=== PATIENT | male | born 1960 | race Caucasian/White ===

== ENCOUNTER 2019-10-26 09:35 | Outpatient (CLI) | payer OTHER ==
[2019-10-26] MEDS ORDERED: DIPH50CA PO (10:09)
[2019-10-26] MEDS ORDERED: FENO160T PO (10:09)
[2019-10-26] MEDS ORDERED: CLON1TAB11 PO (10:09)
[2019-10-26] MEDS ORDERED: CHOL10003 PO (10:09)
[2019-10-26] MEDS ORDERED: MELO15TA24 PO (10:09)
[2019-10-26] MEDS ORDERED: AMIT25TA PO (10:09)
[2019-10-26] MEDS ORDERED: ATOR40TA78 PO (10:09)
[2019-10-26 10:30] LABS: BASOPHILS # (AUTO) 0.05 x10^3/uL (0-0.1); BASOPHILS % (AUTO) 1 % (0-1); EOSINOPHILS % (AUTO) 4 % (1-7); LYMPHOCYTES # (AUTO) 2.52 x10^3/uL (1-3.4); LYMPHOCYTES % (AUTO) 26 % (22-44); MD NO; MEAN CORPUSCULAR HEMOGLOBIN 29.2 pg (27.5-34.5); MEAN CORPUSCULAR HGB CONC 32.4 g/dL (33.2-36.2); MEAN PLATELET VOLUME 7.2 fL (7.4-10.4); MONOCYTES # (AUTO) 0.75 x10^3/uL (0.2-0.8); MONOCYTES % (AUTO) 8 % (2-9); NEUTROPHILS # (AUTO) 5.89 x10^3/uL (1.8-6.8); NEUTROPHILS % (AUTO) 61 % (42-75); PLATELET COUNT 318 x10^3/uL (130-400); RED CELL DISTRIBUTION WIDTH 13.1 % (9.4-14.8)
[2019-10-26 10:40] LABS: ANION GAP 4 mmol/L (5-15); CALCIUM 9.3 mg/dL (8.5-10.1); CHLORIDE 109 mmol/L (98-107); CREATININE 1.28 mg/dL (0.7-1.3)
[2019-10-26 10:42] LABS: INTERNATIONAL NORMALIZED RATIO 0.97 (0.93-1.1); PROTHROMBIN TIME 10.3 Seconds (9.6-11.5)
== END 2019-10-26 23:59 | disposition home or self-care (01) ==
LOC: STAR 09:35
PROVIDERS: ATTEND Neurological Surgery
DX: Z01.818 Encounter for other preprocedural examination (principal); M51.26 Other intervertebral disc displacement, lumbar region
CPT/HCPCS: 36415; 71046; 80048; 85025; 85610; 85730; 93005

== ENCOUNTER → 2019-10-31 | Day surgery (SDC) | payer OTHER ==
[~2019-10-31] VITALS: Ht 188 cm; Wt 94.7 kg
[~2019-10-31] MED LIST: ACETAMINOPHEN 325 MG TABLET PO PRN; ALBUTEROL SULFATE 2.5 MG/3 ML NPPB PRN; AMIT25TA PO; ATOR40TA78 PO; BACITRACIN 50,000 UNIT ONE; BACITRACIN OINT 500U/GM, 15 GM ONE; BUPIVACAINE/PF-EPI 0.5% 1:200K ONE; CEFAZOLIN 1,000 MG ONE; CHLORHEXIDINE 15 ML UDC MM STA; CHLORHEXIDINE 15 ML UDC ONE; CHOL10003 PO; CLON1TAB11 PO; DEXAMETHASONE 4 MG/ML, 1ML ONE; DIPH50CA PO; EPHEDRINE 50 MG/ML, 1ML ONE; FENO160T PO; FENTANYL PF 100 MCG/2ML ONE; FENTANYL PF 250 MCG/5ML ONE; GLYCOPYRROLATE 0.2MG/1ML, 5ML ONE; HYDROmorphone 1 MG/ML, 1ML INJ IVPush PRN; KETOROLAC 30 MG/1 ML ONE; LABETALOL 5MG/ML, 20ML IV PRN; LACTATED RINGERS 1,000 ML IV SCH; LACTATED RINGERS 1,000 ML IV STA; LIDOCAINE PF 2%, 5ML ONE; LORazepam 2 MG/ML, 1ML IVPush PRN; MELO15TA24 PO; MEPERIDINE/PF 25MG/ML,1ML ONE; METHOCARBAMOL 1,000 MG in DEXTROSE 5% 100 ML IV PRN; MIDAZOLAM 1 MG/ML, 2ML ONE; NEOSTIGMINE 1 MG/ML, 10ML ONE; ONDANSETRON 2MG/ML, 2ML ONE; OXYcodone 5 MG/5 ML ORAL.SOL UDC ONE; OXYcodone 5 MG/5 ML ORAL.SOL UDC PO PRN; OXYcodone IR 5MG TABLET PO PRN; PROMETHAZINE 25 MG/ML, 1ML IVPush PRN; PROPOFOL 10 MG/ML, 20ML ONE; PROPOFOL 10 MG/ML, 50ML ONE; ROCURONIUM 10MG/ML,5ML ONE; SUCCINYLCHOLINE 20 MG/ML, 10ML ONE; THROMBIN 20,000 UNIT VIAL TP ONE; hydrALAzine 20 MG/ML, 1ML IV PRN
[2019-10-31 09:09] VITALS: BP 144/94
[2019-10-31] MEDS: FENTANYL PF 100 MCG/2ML IV PRN ×2 (12:00→12:05)
[2019-10-31] MEDS: MEPERIDINE/PF 25MG/0.5ML IVPush PRN ×2 (12:15→12:30)
== END | disposition home or self-care (01) ==
LOC: ORIP 08:31 → UNDOADMIN 08:31 → SDC 09:11 → EDSTATUS 12:00 → UNDODISIN 16:47
PROVIDERS: ATTEND Neurological Surgery
DX: M51.26 Other intervertebral disc displacement, lumbar region (principal); Z20.828 Contact with and (suspected) exposure to other viral communicable diseases; M48.061 Spinal stenosis, lumbar region without neurogenic claudication; M48.07 Spinal stenosis, lumbosacral region; E78.5 Hyperlipidemia, unspecified; M19.90 Unspecified osteoarthritis, unspecified site; Z79.1 Long term (current) use of non-steroidal anti-inflammatories (NSAID); Z79.899 Other long term (current) drug therapy; Z87.891 Personal history of nicotine dependence; Z90.49 Acquired absence of other specified parts of digestive tract; Z98.890 Other specified postprocedural states; Z82.49 Family history of ischemic heart disease and other diseases of the circulatory system
CPT/HCPCS: 36415; 63030; 63047; 72100; 86850; 86900; 87635; 95938; 95941; C1781; J0330; J0690; J1100; J1885; J2175; J2250; J2405; J2704; J2710; J2800; J3010; J7120

== ENCOUNTER 2019-11-01 14:29 | Inpatient (IN) | payer OTHER ==
[~2019-11-01] VITALS: Ht 188 cm; Wt 103.9 kg
[~2019-11-01 14:29] MED LIST changes: -ACETAMINOPHEN 325 MG TABLET PO PRN; -ALBUTEROL SULFATE 2.5 MG/3 ML NPPB PRN; -BACITRACIN 50,000 UNIT ONE; -BACITRACIN OINT 500U/GM, 15 GM ONE; -BUPIVACAINE/PF-EPI 0.5% 1:200K ONE; -CEFAZOLIN 1,000 MG ONE; -CHLORHEXIDINE 15 ML UDC MM STA; -CHLORHEXIDINE 15 ML UDC ONE; -DEXAMETHASONE 4 MG/ML, 1ML ONE; -EPHEDRINE 50 MG/ML, 1ML ONE; -FENTANYL PF 100 MCG/2ML ONE; -FENTANYL PF 250 MCG/5ML ONE; -GLYCOPYRROLATE 0.2MG/1ML, 5ML ONE; -HYDROmorphone 1 MG/ML, 1ML INJ IVPush PRN; -KETOROLAC 30 MG/1 ML ONE; -LABETALOL 5MG/ML, 20ML IV PRN; -LACTATED RINGERS 1,000 ML IV SCH; -LACTATED RINGERS 1,000 ML IV STA; -LIDOCAINE PF 2%, 5ML ONE; -LORazepam 2 MG/ML, 1ML IVPush PRN; -MEPERIDINE/PF 25MG/ML,1ML ONE; -METHOCARBAMOL 1,000 MG in DEXTROSE 5% 100 ML IV PRN; -MIDAZOLAM 1 MG/ML, 2ML ONE; -NEOSTIGMINE 1 MG/ML, 10ML ONE; -ONDANSETRON 2MG/ML, 2ML ONE; -OXYcodone 5 MG/5 ML ORAL.SOL UDC ONE; -OXYcodone 5 MG/5 ML ORAL.SOL UDC PO PRN; -OXYcodone IR 5MG TABLET PO PRN; -PROMETHAZINE 25 MG/ML, 1ML IVPush PRN; -PROPOFOL 10 MG/ML, 20ML ONE; -PROPOFOL 10 MG/ML, 50ML ONE; -ROCURONIUM 10MG/ML,5ML ONE; -SUCCINYLCHOLINE 20 MG/ML, 10ML ONE; -THROMBIN 20,000 UNIT VIAL TP ONE; -hydrALAzine 20 MG/ML, 1ML IV PRN
--- NOTE | 2019-11-01 15:02 | NUR ---
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
--- NOTE | 2019-11-01 15:25 | NUR ---
BREAK RN: EFRA DIRECTOR OF PERIOPERATIVE SERVICES AT BEDSIDE TO NANCY PT. CONTACT WITH PT. 59 YR OLD MALE HERE WITH C/O "YESTERDAY I CHECKED IN AT 0830 AND HAD A LAMINECTOMY DISCECTOMY BY DR BONE, WE JUST CAME FROM HIS OFFICE. RIGHT FOOT IS NUMB AND "I CANT PICK IT UP"
[2019-11-01] MEDS ORDERED: ONDANSETRON 2MG/ML, 2ML IVPush ONE ×2 (15:30→16:30)
[2019-11-01] MEDS ORDERED: SODIUM CHLORIDE FLUSH 10ML SYR IVF ONE (15:30)
--- NOTE | 2019-11-01 15:53 | NUR ---
RECEIVED CALL FROM KANDI NEWTON, REQUEST PT ALSO HAVE PT/INR AND PTT DRAWN. ORDER PLACED. PT TO GO TO SURGERY AT 8PM TONIGHT. WOULD LIKE ED MD TO PHONE HER WITH MRI RESULTS.
--- NOTE | 2019-11-01 16:00 | NUR ---
REPORT TO YOL[facility]
[2019-11-01] MEDS ORDERED: MORPHINE SULFATE 4 MG/ML, 1ML ONE (16:24)
[2019-11-01] MEDS ORDERED: ONDANSETRON 2MG/ML, 2ML ONE ×2 (16:24→20:50)
[2019-11-01] MEDS ORDERED: MORPHINE SULFATE 4 MG/ML, 1ML IVPush PRN (16:30)
[2019-11-01] MEDS ORDERED: DIAZEPAM 5 MG/ML, 2ML IV ONE (16:30)
--- NOTE | 2019-11-01 16:32 | NUR ---
C/O LBP. Medicated per eMAR. No other needs.
[2019-11-01 17:18] LABS: BASOPHILS # (AUTO) 0.07 x10^3/uL (0-0.1); BASOPHILS % (AUTO) 1 % (0-1); EOSINOPHILS # (AUTO) 0.19 x10^3/uL (0-0.4); EOSINOPHILS % (AUTO) 2 % (1-7); LYMPHOCYTES % (AUTO) 20 % (22-44); MD NO; MEAN CORPUSCULAR HEMOGLOBIN 29.9 pg (27.5-34.5); MEAN CORPUSCULAR HGB CONC 33.5 g/dL (33.2-36.2); MEAN CORPUSCULAR VOLUME 89.2 fL (81-97); MEAN PLATELET VOLUME 8.1 fL (7.4-10.4); MONOCYTES # (AUTO) 1.34 x10^3/uL (0.2-0.8); MONOCYTES % (AUTO) 10 % (2-9); NEUTROPHILS # (AUTO) 8.78 x10^3/uL (1.8-6.8); NEUTROPHILS % (AUTO) 68 % (42-75); PLATELET COUNT 274 x10^3/uL (130-400); RED BLOOD COUNT 4.82 x10^6/uL (4.38-5.82); RED CELL DISTRIBUTION WIDTH 13.5 % (9.4-14.8)
--- NOTE | 2019-11-01 17:25 | NUR ---
Patient to MRI.
[2019-11-01 17:29] LABS: ALBUMIN 4.1 g/dL (3.4-5.0); ANION GAP 4 mmol/L (5-15); CALCIUM 8.8 mg/dL (8.5-10.1); CHLORIDE 105 mmol/L (98-107)
[2019-11-01 17:33] LABS: INTERNATIONAL NORMALIZED RATIO 0.94 (0.93-1.1)
[2019-11-01] MEDS ORDERED: GADOTERATE 10 MMOL/20 ML SYR ONE (17:56)
--- NOTE | 2019-11-01 18:29 | NUR ---
SBA to the restroom.
[2019-11-01] MEDS ORDERED: FENTANYL PF 100 MCG/2ML ONE ×2 (18:43→21:41)
[2019-11-01] MEDS ORDERED: MIDAZOLAM 1 MG/ML, 2ML ONE (18:44)
[2019-11-01] MEDS ORDERED: FAMOTIDINE 20 MG/2 ML ONE (18:49)
[2019-11-01] MEDS ORDERED: DEXAMETHASONE 4 MG/ML, 1ML ONE ×2 (18:49→20:50)
[2019-11-01] MEDS ORDERED: GABAPENTIN 300 MG CAPSULE ONE (18:49)
[2019-11-01] MEDS ORDERED: LACTATED RINGERS 1,000 ML IV ONE (19:00)
[2019-11-01] MEDS ORDERED: GABAPENTIN 300 MG CAPSULE PO ONE (19:00)
[2019-11-01] MEDS ORDERED: FAMOTIDINE 20 MG/2 ML IVPush ONE (19:00)
[2019-11-01] MEDS ORDERED: DEXAMETHASONE 4 MG/ML, 1ML IVPush ONE (19:00)
--- NOTE | 2019-11-01 19:23 | NUR ---
Patient to OR
[2019-11-01] MEDS ORDERED: LACTATED RINGERS 1,000 ML IV SCH (19:30)
[2019-11-01] MEDS ORDERED: BACITRACIN 50,000 UNIT ONE (19:36)
[2019-11-01] MEDS ORDERED: THROMBIN 20,000 UNIT VIAL TP ONE (19:36)
[2019-11-01] MEDS ORDERED: BUPIVACAINE/PF-EPI 0.5% 1:200K ONE (19:36)
[2019-11-01] MEDS ORDERED: BACITRACIN OINT 500U/GM, 15 GM ONE (19:36)
[2019-11-01] MEDS ORDERED: PHENYLEPHRINE 10 MG/ML ONE (19:58)
[2019-11-01] MEDS ORDERED: EPHEDRINE 50 MG/ML, 1ML ONE (19:58)
[2019-11-01] MEDS ORDERED: PROPOFOL 10 MG/ML, 20ML ONE (20:50)
[2019-11-01] MEDS ORDERED: CEFAZOLIN 1,000 MG ONE (20:50)
[2019-11-01] MEDS ORDERED: KETOROLAC 30 MG/1 ML IVPush PRN (21:00)
[2019-11-01] MEDS ORDERED: HYDROcodone/APAP 7.5-325MG/15ML UDC PO PRN (21:00)
[2019-11-01] MEDS ORDERED: PROMETHAZINE 25 MG/ML, 1ML IVPush PRN (21:00)
[2019-11-01] MEDS ORDERED: MEPERIDINE/PF 25MG/0.5ML IVPush PRN (21:00)
[2019-11-01] MEDS ORDERED: HYDROcodone/APAP 7.5-325MG/15ML UDC ONE (21:41)
[2019-11-01] MEDS ORDERED: HYDROmorphone 1 MG/ML, 1ML INJ ONE ×2 (21:41→22:12)
[2019-11-01] MEDS: FENTANYL PF 100 MCG/2ML IV PRN ×2 (21:44→21:49)
[2019-11-01] MEDS: HYDROmorphone 1 MG/ML, 1ML INJ IVPush PRN ×4 (21:54→22:21)
[2019-11-01] MEDS ORDERED: METHOCARBAMOL 750 MG TABLET ONE (22:12)
[2019-11-01] MEDS ORDERED: HYDROmorphone PCA 30 MG/30 ML IV PRN ×2 (22:30→23:45)
[2019-11-01] MEDS ORDERED: METHOCARBAMOL 750 MG TABLET PO ONE (22:30)
[2019-11-01] MEDS ORDERED: BISACODYL 10 MG SUPP PR PRN (23:45)
[2019-11-01] MEDS ORDERED: DIPHENHYDRAMINE 50 MG CAPSULE PO PRN (23:45)
[2019-11-01] MEDS ORDERED: DIPHENHYDRAMINE 50 MG/ML, 1ML IVPush PRN (23:45)
[2019-11-01] MEDS ORDERED: NS + 20MEQ KCL 1,000 ML IV SCH (23:45)
[2019-11-01] MEDS ORDERED: MAGNESIUM HYDROXIDE 8%, 30ML UDC PO PRN (23:45)
[2019-11-01] MEDS ORDERED: PROMETHAZINE 25 MG/ML, 1ML IM PRN (23:45)
[2019-11-01] MEDS ORDERED: ONDANSETRON 2MG/ML, 2ML IV PRN (23:45)
[2019-11-01] MEDS ORDERED: MORPHINE MC SCH (23:45)
[2019-11-01] MEDS ORDERED: LABETALOL 5MG/ML, 20ML IV PRN (23:45)
[2019-11-02] MEDS ORDERED: LACTATED RINGERS 1,000 ML IV SCH
[2019-11-02] MEDS ORDERED: TRAZODONE 50MG TABLET PO PRN
[2019-11-02] MEDS ORDERED: ACETAMINOPHEN 325 MG TABLET PO PRN
[2019-11-02] MEDS ORDERED: hydrALAzine 20 MG/ML, 1ML IVPush PRN
[2019-11-02] MEDS ORDERED: ONDANSETRON 2MG/ML, 2ML IVPush PRN
[2019-11-02 00:14] VITALS: BP 152/71
[2019-11-02] MEDS ORDERED: ATORVASTATIN 40 MG TABLET PO SCH (00:30)
[2019-11-02] MEDS: FAMOTIDINE 20 MG/2 ML IVPush SCH ×2 (00:35→12:47)
[2019-11-02] MEDS: AMITRIPTYLINE 25 MG TABLET PO SCH ×2 (00:40→21:08)
[2019-11-02] MEDS: ATORVASTATIN 40 MG TABLET PO SCH ×2 (00:41→21:08)
[2019-11-02 02:25] LABS: MICROSCOPIC AUTO
[2019-11-02] MEDS: DEXAMETHASONE 4 MG/ML, 1ML IV SCH ×4 (02:59→21:08)
[2019-11-02] MEDS: CEFAZOLIN PMX 2GM/50ML 50 ML IVPB SCH ×2 (03:51→12:48)
[2019-11-02 03:53] VITALS: BP 95/59
[2019-11-02] MEDS ORDERED: morphine SULFATE 10 MG/ML, 1ML IVPush PRN (06:30)
[2019-11-02] MEDS ORDERED: METHOCARBAMOL 1,000 MG in DEXTROSE 5% 100 ML IV ONE ×2 (06:30)
[2019-11-02 06:33] LABS: BASOPHILS # (AUTO) 0.01 x10^3/uL (0-0.1); BASOPHILS % (AUTO) 0 % (0-1); EOSINOPHILS % (AUTO) 0 % (1-7); LYMPHOCYTES # (AUTO) 0.58 x10^3/uL (1-3.4); LYMPHOCYTES % (AUTO) 4 % (22-44); MD NO; MEAN CORPUSCULAR HEMOGLOBIN 29.3 pg (27.5-34.5); MEAN CORPUSCULAR HGB CONC 32.2 g/dL (33.2-36.2); MEAN CORPUSCULAR VOLUME 91.1 fL (81-97); MEAN PLATELET VOLUME 8.3 fL (7.4-10.4); MONOCYTES # (AUTO) 0.46 x10^3/uL (0.2-0.8); MONOCYTES % (AUTO) 3 % (2-9); NEUTROPHILS # (AUTO) 13.33 x10^3/uL (1.8-6.8); NEUTROPHILS % (AUTO) 93 % (42-75); PLATELET COUNT 240 x10^3/uL (130-400); RED BLOOD COUNT 4.74 x10^6/uL (4.38-5.82); RED CELL DISTRIBUTION WIDTH 13.9 % (9.4-14.8)
[2019-11-02 07:31] VITALS: BP 110/65
[2019-11-02 07:42] LABS: ANION GAP 6 mmol/L (5-15); CALCIUM 8.4 mg/dL (8.5-10.1); CHLORIDE 105 mmol/L (98-107); CREATININE 1.45 mg/dL (0.7-1.3)
[2019-11-02] MEDS ORDERED: SENNA/DOCUSATE TABLET PO SCH (09:00)
[2019-11-02] MEDS: SENNA/DOCUSATE TABLET PO SCH (09:05)
[2019-11-02] MEDS: FENOFIBRATE 145 MG TABLET PO SCH (09:05)
[2019-11-02] MEDS ORDERED: SODIUM CHLORIDE 0.9% 1,000 ML IV SCH (11:30)
[2019-11-02] MEDS: SODIUM CHLORIDE 0.9% 1,000 ML IV SCH (12:49)
[2019-11-02 13:59] VITALS: BP 98/54
[2019-11-02] MEDS: MAGNESIUM HYDROXIDE 8%, 30ML UDC PO SCH (15:00)
[2019-11-02] MEDS: METHOCARBAMOL 750 MG in DEXTROSE 5% 100 ML IV SCH ×2 (15:35→22:32)
[2019-11-02 19:19] VITALS: BP 116/73
[2019-11-02] MEDS: HYDROcodone/APAP 10/325 MG TABLET PO PRN ×2 (20:13→21:15)
[2019-11-03] MEDS: SODIUM CHLORIDE 0.9% 1,000 ML IV SCH ×2 (00:42→11:14)
[2019-11-03 00:43] VITALS: BP 114/72
[2019-11-03] MEDS: HYDROcodone/APAP 10/325 MG TABLET PO PRN ×2 (01:13→05:59)
[2019-11-03] MEDS: DEXAMETHASONE 4 MG/ML, 1ML IV SCH ×2 (03:23→08:56)
[2019-11-03] MEDS: METHOCARBAMOL 750 MG in DEXTROSE 5% 100 ML IV SCH (06:00)
[2019-11-03 06:29] LABS: MEAN CORPUSCULAR HEMOGLOBIN 29.2 pg (27.5-34.5); MEAN CORPUSCULAR HGB CONC 31.8 g/dL (33.2-36.2); MEAN CORPUSCULAR VOLUME 91.8 fL (81-97); MEAN PLATELET VOLUME 7.9 fL (7.4-10.4); PLATELET COUNT 243 x10^3/uL (130-400); RED BLOOD COUNT 4.47 x10^6/uL (4.38-5.82); RED CELL DISTRIBUTION WIDTH 13.4 % (9.4-14.8)
[2019-11-03 06:33] LABS: ANION GAP 5 mmol/L (5-15); CALCIUM 8.5 mg/dL (8.5-10.1); CHLORIDE 105 mmol/L (98-107)
[2019-11-03 06:34] LABS: CREATININE 1.14 mg/dL (0.7-1.3)
[2019-11-03 06:58] LABS: BASOPHILS # (AUTO) 0.02 x10^3/uL (0-0.1); BASOPHILS % (AUTO) 0 % (0-1); EOSINOPHILS % (AUTO) 0 % (1-7); LYMPHOCYTES % (AUTO) 8 % (22-44); MD SCAN; MONOCYTES # (AUTO) 1.02 x10^3/uL (0.2-0.8); MONOCYTES % (AUTO) 6 % (2-9); NEUTROPHILS # (AUTO) 13.65 x10^3/uL (1.8-6.8); NEUTROPHILS % (AUTO) 85 % (42-75)
[2019-11-03 07:48] VITALS: BP 123/74
[2019-11-03] MEDS: SENNA/DOCUSATE TABLET PO SCH (08:56)
[2019-11-03] MEDS: FENOFIBRATE 145 MG TABLET PO SCH (08:56)
[2019-11-03] MEDS: MAGNESIUM HYDROXIDE 8%, 30ML UDC PO SCH (08:56)
[2019-11-04] MEDS ORDERED: METHOCARBAMOL 750 MG TABLET PO PRN (08:00)
== END 2019-11-03 14:05 | disposition home health service (06) | DRG 518 ==
LOC: OR 17:04 → EDIP 20:25 → OBSVTOIN 20:25 → INTOOBSV 20:25 → 4NE 23:10
PROVIDERS: ADMIT Family Medicine; ATTEND Hospitalist
PROC: 0SB20ZZ Excision of Lumbar Vertebral Disc, Open Approach (ICD-10-PCS; principal; 2019-11-01 20:00)
DX: M51.26 Other intervertebral disc displacement, lumbar region (principal); S34.105A Unspecified injury to L5 level of lumbar spinal cord, initial encounter; N17.9 Acute kidney failure, unspecified; M47.816 Spondylosis without myelopathy or radiculopathy, lumbar region; M17.0 Bilateral primary osteoarthritis of knee; F51.04 Psychophysiologic insomnia; F17.200 Nicotine dependence, unspecified, uncomplicated; E78.5 Hyperlipidemia, unspecified; M19.019 Primary osteoarthritis, unspecified shoulder; M21.371 Foot drop, right foot; Z82.49 Family history of ischemic heart disease and other diseases of the circulatory system; X58.XXXA Exposure to other specified factors, initial encounter; Y93.89 Activity, other specified; Y92.89 Other specified places as the place of occurrence of the external cause; Y99.8 Other external cause status; Z88.5 Allergy status to narcotic agent; Z88.8 Allergy status to other drugs, medicaments and biological substances
CPT/HCPCS: 36415; 96374; 96375; 99285; J3490; 72158; 80048; 81001; 82040; 85025; 85610; 85730; 95938; 95941; G0378; J0690; J1100; J1170; J2250; J2405; J2704; J3010; J3480; A9575; J2270; J2370; J2800; J7030; J7120

== ENCOUNTER 2019-12-25 12:26 | Outpatient (CLI) | payer OTHER ==
[2019-12-25] MEDS ORDERED: GADOTERATE 10 MMOL/20 ML SYR ONE (13:12)
== END 2019-12-25 23:59 | disposition home or self-care (01) ==
LOC: RAD 12:26
PROVIDERS: ATTEND Physician Assistant
DX: M51.27 Other intervertebral disc displacement, lumbosacral region (principal); M48.07 Spinal stenosis, lumbosacral region; M21.372 Foot drop, left foot
CPT/HCPCS: 72158; A9575